=== PATIENT | male | born 1935 | race Caucasian/White ===

== ENCOUNTER 2018-01-15 18:45 | Emergency (ER) | payer MEDICARE, BC ==
[~2018-01-15] VITALS: Ht 180.3 cm; Wt 110.0 kg
[~2018-01-15 18:45] MED LIST: TAMS0.4C32 PO
[2018-01-15] MEDS ORDERED: LIDOcaine 1.5% w/epinephrine 1:200,000 5ml ampul IJ ONE (19:30)
[2018-01-15] MEDS ORDERED: labetalol 100mg tablet PO ONE (20:06)
[2018-01-15 20:16] LABS: BASOPHILS % (AUTO) 0.6 % (0-1); EOSINOPHILS # (AUTO) 0.4 X10'3 (0-0.9); EOSINOPHILS % (AUTO) 6.5 % (0-6); HEMATOCRIT 38.2 % (42.0-52.0); HEMOGLOBIN 12.9 g/dl (14.0-17.9); LYMPHOCYTES # (AUTO) 1.4 X10'3 (1.1-4.8); LYMPHOCYTES % (AUTO) 25.8 % (21-51); MEAN CORPUSCULAR HGB CONC 33.9 % (33.0-36.5); MEAN CORPUSCULAR VOLUME 88.4 FL (78-98); MEAN PLATELET VOLUME 6.6 FL (7.4-10.4); MONOCYTES # (AUTO) 0.6 X10'3 (0-0.9); MONOCYTES % (AUTO) 10.8 % (2-12); NEUTROPHILS # (AUTO) 3.1 X10'3 (1.8-7.7); NEUTROPHILS % (AUTO) 56.3 % (42-75); PLATELET COUNT 195 X10'3 (140-440); RED BLOOD COUNT 4.32 X10'6 (4.70-6.10); RED CELL DISTRIBUTION WIDTH 13.1 % (11.5-14.5); WHITE BLOOD COUNT 5.6 X10'3 (4.5-11.0)
[2018-01-15 20:35] LABS: PARTIAL THROMBOPLASTIN TIME 28 SECONDS (22-32); PROTHROMBIN TIME 10.4 SECONDS (9.0-12.0)
[2018-01-15 21:06] VITALS: BP 168/86
== END 2018-01-15 21:19 | disposition home or self-care (01) ==
LOC: ER 18:45
DX: T81.89XA Other complications of procedures, not elsewhere classified, initial encounter (principal); E78.00 Pure hypercholesterolemia, unspecified; I10 Essential (primary) hypertension; J45.909 Unspecified asthma, uncomplicated; Z88.0 Allergy status to penicillin
CPT/HCPCS: 36415; 85025; 85610; 85730; 99284; A6449; J3490; 99283

== ENCOUNTER 2018-03-21 13:38 | Emergency (ER) | payer MEDICARE, BC ==
[~2018-03-21] VITALS: Ht 180.3 cm; Wt 92.7 kg
[2018-03-21] MEDS ORDERED: TETanus/Pertussis (Acell)/Diphther VAC/PF (Tdap-Adult) 0.5ml syringe IM ONE (14:05)
[2018-03-21] MEDS ORDERED: LIDOcaine 1.5% w/epinephrine 1:200,000 5ml ampul IJ ONE (14:05)
[2018-03-21 15:28] VITALS: BP 147/75
== END 2018-03-21 15:36 | disposition home or self-care (01) ==
LOC: ER 13:39
DX: S01.01XA Laceration without foreign body of scalp, initial encounter (principal); E78.00 Pure hypercholesterolemia, unspecified; I10 Essential (primary) hypertension; J45.909 Unspecified asthma, uncomplicated; Z88.0 Allergy status to penicillin; W22.8XXA Striking against or struck by other objects, initial encounter; Y93.89 Activity, other specified; Y92.89 Other specified places as the place of occurrence of the external cause; Y99.8 Other external cause status
CPT/HCPCS: 12002; 70450; 90471; 90715; 99284; A6449; J3490

== ENCOUNTER 2020-09-09 15:48 | Inpatient (IN) | payer OTHER, MEDICARE, BC ==
[~2020-09-09] VITALS: Ht 180.3 cm; Wt 92.7 kg
[2020-09-09] MEDS ORDERED: normal saline 1000ML IV soln IVB ONE (15:55)
[2020-09-09] MEDS ORDERED: morphine 4 MG/ML inj SYRINge IV ONE (15:55)
[2020-09-09] MEDS ORDERED: ondansetron/PF 4mg/2ml inj IV ONE (15:55)
[2020-09-09 16:48] LABS: BASOPHILS % (AUTO) 0.5 % (0-1); EOSINOPHILS # (AUTO) 0.1 X10'3 (0-0.9); EOSINOPHILS % (AUTO) 0.9 % (0-6); HEMATOCRIT 40.7 % (42.0-52.0); HEMOGLOBIN 13.9 g/dl (14.0-17.9); LYMPHOCYTES # (AUTO) 0.8 X10'3 (1.1-4.8); LYMPHOCYTES % (AUTO) 9.9 % (21-51); MEAN CORPUSCULAR HGB CONC 34.2 g/dL (33.0-36.5); MEAN CORPUSCULAR VOLUME 90.5 FL (78-98); MEAN PLATELET VOLUME 7.1 FL (7.4-10.4); MONOCYTES # (AUTO) 0.6 X10'3 (0-0.9); MONOCYTES % (AUTO) 6.8 % (2-12); NEUTROPHILS % (AUTO) 81.9 % (42-75); PLATELET COUNT 208 X10'3 (140-440); RED CELL DISTRIBUTION WIDTH 13.3 % (11.5-14.5); WHITE BLOOD COUNT 8.5 X10'3 (4.5-11.0)
[2020-09-09 16:58] LABS: PARTIAL THROMBOPLASTIN TIME 29 SECONDS (22-32)
--- NOTE | 2020-09-09 17:10 | NUR ---
TC TO [facility], . INFORMED THAT PATIENT HAS FX HIP AND WILL BE ADMITTED FOR PROBABLE OR.
[2020-09-09] MEDS ORDERED: ATOR20TA PO (17:20)
[2020-09-09] MEDS ORDERED: QUIN10TA16 PO (17:20)
[2020-09-09] MEDS ORDERED: ASPI-920 PO (17:20)
[2020-09-09] MEDS ORDERED: CARB100C PO (17:20)
[2020-09-09] MEDS ORDERED: CETI-90 PO (17:20)
[2020-09-09] MEDS ORDERED: PROP20TA6 PO (17:20)
[2020-09-09] MEDS ORDERED: FINA5TAB11 PO (17:20)
[2020-09-09 17:28] LABS: ALANINE AMINOTRANSFERASE 24 U/L (12-78); ALBUMIN 3.7 G/DL (3.4-5.0); ALBUMIN/GLOBULIN RATIO 1.2 (1.1-1.5); ALKALINE PHOSPHATASE 73 IU/L (46-116); ANION GAP 6 (8-16); ASPARTATE AMINO TRANSFERASE 29 U/L (10-37); BILIRUBIN,TOTAL 0.4 MG/DL (0.1-1.0); BLOOD UREA NITROGEN 7 MG/DL (7-18); BUN/CREATININE RATIO 8.2 (5.4-32.0); CALCIUM 8.9 MG/DL (8.5-10.1); CHLORIDE 92 MMOL/L (99-107); CREATININE 0.85 MG/DL (0.60-1.10); GLUCOSE 105 MG/DL (70-104); POTASSIUM 4.3 MMOL/L (3.5-5.1); SODIUM 124 MMOL/L (135-145); TOTAL PROTEIN 6.9 G/DL (6.4-8.2); eGFR 85 ML/MIN
[2020-09-09] MEDS ORDERED: FLO0.4C PO (18:52)
[2020-09-09] MEDS ORDERED: mag hydrox/Alum hydrox/simeth 30ml oral suspension PO PRN (19:30)
[2020-09-09] MEDS ORDERED: morphine 2 MG/ML inj. syringe IV PRN (19:30)
[2020-09-09] MEDS ORDERED: ondansetron/PF 4mg/2ml inj IV PRN (19:30)
[2020-09-09] MEDS ORDERED: magnesium hydroxide 30ml (MOM) UD suspension PO PRN (19:30)
[2020-09-09] MEDS ORDERED: acetaminophen 325mg tablet PO PRN (19:30)
[2020-09-09] MEDS ORDERED: morphine 4 MG/ML inj SYRINge IV PRN (19:40)
[2020-09-09] MEDS: normal saline 1000ml 1,000 ML IV SCH (19:56)
[2020-09-09] MEDS: morphine 2 MG/ML inj. syringe IV PRN (19:56)
[2020-09-09] MEDS ORDERED: propranolol 40mg tablet PO SCH (20:00)
[2020-09-09 20:50] VITALS: BP 164/76
[2020-09-09] MEDS: propranolol 10mg tablet PO SCH (21:06)
[2020-09-09] MEDS: atorvastatin 20mg tablet PO SCH (21:07)
[2020-09-10] VITALS (16 sets, daily range): BP systolic 100–181; BP diastolic 50–78
[2020-09-10] MEDS: morphine 2 MG/ML inj. syringe IV PRN (04:05)
[2020-09-10] MEDS: normal saline 1000ml 1,000 ML IV SCH ×2 (05:30→20:34)
[2020-09-10] MEDS ORDERED: LIDOcaine 2% 10ml TOPICAL JELLY (Urojet) TP ONE (05:40)
[2020-09-10 06:54] LABS: BASOPHILS % (AUTO) 0.3 % (0-1); EOSINOPHILS # (AUTO) 0.1 X10'3 (0-0.9); EOSINOPHILS % (AUTO) 1.5 % (0-6); HEMATOCRIT 41.1 % (42.0-52.0); LYMPHOCYTES % (AUTO) 11.2 % (21-51); MEAN CORPUSCULAR HEMOGLOBIN 31.5 PG (27.0-31.0); MEAN CORPUSCULAR HGB CONC 34.1 g/dL (33.0-36.5); MEAN CORPUSCULAR VOLUME 92.3 FL (78-98); MEAN PLATELET VOLUME 6.9 FL (7.4-10.4); MONOCYTES # (AUTO) 0.6 X10'3 (0-0.9); MONOCYTES % (AUTO) 6.7 % (2-12); NEUTROPHILS # (AUTO) 6.8 X10'3 (1.8-7.7); NEUTROPHILS % (AUTO) 80.3 % (42-75); PLATELET COUNT 176 X10'3 (140-440); RED BLOOD COUNT 4.46 X10'6 (4.70-6.10); RED CELL DISTRIBUTION WIDTH 13.3 % (11.5-14.5); WHITE BLOOD COUNT 8.5 X10'3 (4.5-11.0)
[2020-09-10 07:13] LABS: ALANINE AMINOTRANSFERASE 20 U/L (12-78); ALBUMIN 3.6 G/DL (3.4-5.0); ALBUMIN/GLOBULIN RATIO 1.1 (1.1-1.5); ALKALINE PHOSPHATASE 70 IU/L (46-116); ANION GAP 6 (8-16); ASPARTATE AMINO TRANSFERASE 16 U/L (10-37); BILIRUBIN,TOTAL 0.8 MG/DL (0.1-1.0); BLOOD UREA NITROGEN 9 MG/DL (7-18); BUN/CREATININE RATIO 11.5 (5.4-32.0); CALCIUM 9.2 MG/DL (8.5-10.1); CHLORIDE 95 MMOL/L (99-107); CREATININE 0.78 MG/DL (0.60-1.10); GLUCOSE 108 MG/DL (70-104); POTASSIUM 4.1 MMOL/L (3.5-5.1); SODIUM 130 MMOL/L (135-145); TOTAL CARBON DIOXIDE 28.9 MMOL/L (24-32); TOTAL PROTEIN 6.9 G/DL (6.4-8.2); eGFR > 90 ML/MIN
[2020-09-10] MEDS ORDERED: finasteride 5mg tablet PO SCH (08:00)
[2020-09-10] MEDS: CARBAMAZEPINE 100 MG PO SCH (08:00)
[2020-09-10] MEDS ORDERED: potassium Cl 20 mEq SR tablet PO PRN ×2 (09:20)
[2020-09-10] MEDS ORDERED: magnesium 4gm in 100ml NS 100 ML IV PRN (09:20)
[2020-09-10] MEDS ORDERED: magnesium Cl slow-release 64mg tablet PO PRN (09:20)
[2020-09-10] MEDS ORDERED: potassium CL 10mEq/100ml bag 100 ML IV PRN (09:20)
[2020-09-10] MEDS: lisinopril 10 MG tablet PO SCH (09:31)
[2020-09-10] MEDS: tamsulosin 0.4mg capsule PO SCH (09:32)
[2020-09-10] MEDS: propranolol 10mg tablet PO SCH ×2 (09:32→20:34)
[2020-09-10] MEDS ORDERED: ondansetron/PF 4mg/2ml inj IV PRN (14:05)
[2020-09-10] MEDS ORDERED: morphine 2 MG/ML inj. syringe IV PRN (14:05)
[2020-09-10] MEDS ORDERED: morphine 4 MG/ML inj SYRINge IV PRN (14:05)
[2020-09-10] MEDS ORDERED: ringers solution, lacted 1,000 ML IV SCH (14:05)
[2020-09-10] MEDS ORDERED: meperidine/PF 25mg/ml syringe IV PRN ×3 (14:05)
[2020-09-10] MEDS ORDERED: proCHLORperazine 10 MG/2 ml inj IV PRN (14:05)
[2020-09-10] MEDS ORDERED: BUPIVAcaine 0.5% inj/PF 30 ML ONE (15:16)
[2020-09-10] MEDS ORDERED: midazolam 2 mg/2 ml injection ONE (15:19)
[2020-09-10] MEDS ORDERED: fentaNYL/PF 50MCG/1 ML 2ML syringe ONE ×2 (15:19→16:49)
[2020-09-10] MEDS ORDERED: BUPIVAcaine/PF 7.5mg/ml (0.75%) 10ml vial ONE (16:48)
[2020-09-10] MEDS ORDERED: ceFAZolin 1000mg inj ONE (16:48)
--- NOTE | 2020-09-10 17:15 | NUR ---
Received from OR via BED , accompanied by Anesthesiologist DR PURVIS and report given by Anesthesiolgist. PATIENT WAKING UP, DENIES PAIN, V/S WNL, NEUROVASCULAR CHECKS INTACT, 20G PIV RUE , DRESSING TO RIGHT HIP CDI W/ COLD POWDER PACK AND , SENSATION T-10. F/C DRAINING DARK CLEAR URINE.
--- NOTE | 2020-09-10 17:55 | NUR ---
PATIENT A&OX4, DENIES PAIN, V/S WNL, NEUROVASCULAR CHECKS INTACT, 20G PIV RUE , DRESSING TO RIGHT HIP CDI W/ COLD POWDER PACK AND , SENSATION T-10. F/C DRAINING DARK CLEAR URINE. PATIENT TAKEN TO 4012A WITH ALL BELONGINGS AND HOOKED UP TO MONITORS IN ROOM AND REPORT GIVEN TO DIRECTOR PROCESS IMPROVEMENT WHO HAS TAKEN OVER PATIENT CARE
[2020-09-10] MEDS: K and/or MAG REPLACEMENT MC SCH (20:00)
[2020-09-10] MEDS: atorvastatin 20mg tablet PO SCH (20:34)
[2020-09-10] MEDS: enoxaparin 30mg/0.3ml syringe SUBCUT SCH (20:34)
[2020-09-11] MEDS: ceFAZolin/D5W- 1GM premix 50 ML IV SCH ×2 (00:30→08:18)
[2020-09-11] MEDS: HYDROcodone/acetaminophen 10/325mg tab PO PRN ×4 (00:37→20:44)
[2020-09-11 02:00] VITALS: BP 113/52
[2020-09-11 06:00] VITALS: BP 121/64
--- NOTE | 2020-09-11 06:23 | NUR ---
Report given to Estefania LATIF.
--- NOTE | 2020-09-11 06:32 | NUR ---
Patient in room ORTHO 4012. I have received report from Nila Barahona RN and had the opportunity to ask questions and assume patient care.
[2020-09-11 07:26] LABS: BASOPHILS % (AUTO) 0.4 % (0-1); EOSINOPHILS % (AUTO) 0.3 % (0-6); HEMATOCRIT 32.1 % (42.0-52.0); LYMPHOCYTES # (AUTO) 0.7 X10'3 (1.1-4.8); LYMPHOCYTES % (AUTO) 7.5 % (21-51); MEAN CORPUSCULAR HEMOGLOBIN 31.3 PG (27.0-31.0); MEAN CORPUSCULAR HGB CONC 34.3 g/dL (33.0-36.5); MEAN CORPUSCULAR VOLUME 91.4 FL (78-98); MONOCYTES # (AUTO) 0.8 X10'3 (0-0.9); MONOCYTES % (AUTO) 8.9 % (2-12); NEUTROPHILS # (AUTO) 7.4 X10'3 (1.8-7.7); NEUTROPHILS % (AUTO) 82.9 % (42-75); PLATELET COUNT 169 X10'3 (140-440); RED BLOOD COUNT 3.51 X10'6 (4.70-6.10); RED CELL DISTRIBUTION WIDTH 13.2 % (11.5-14.5); WHITE BLOOD COUNT 8.9 X10'3 (4.5-11.0)
[2020-09-11 07:44] LABS: ALANINE AMINOTRANSFERASE 18 U/L (12-78); ALBUMIN 2.8 G/DL (3.4-5.0); ALKALINE PHOSPHATASE 52 IU/L (46-116); ANION GAP 6 (8-16); ASPARTATE AMINO TRANSFERASE 18 U/L (10-37); BILIRUBIN,TOTAL 0.7 MG/DL (0.1-1.0); BLOOD UREA NITROGEN 13 MG/DL (7-18); BUN/CREATININE RATIO 15.7 (5.4-32.0); CALCIUM 8.3 MG/DL (8.5-10.1); CHLORIDE 100 MMOL/L (99-107); CREATININE 0.83 MG/DL (0.60-1.10); GLUCOSE 134 MG/DL (70-104); MAGNESIUM 1.9 MG/DL (1.5-2.4); POTASSIUM 3.9 MMOL/L (3.5-5.1); SODIUM 131 MMOL/L (135-145); TOTAL CARBON DIOXIDE 25.3 MMOL/L (24-32); TOTAL PROTEIN 5.7 G/DL (6.4-8.2); eGFR 88 ML/MIN
[2020-09-11] MEDS: K and/or MAG REPLACEMENT MC SCH ×2 (08:00→20:00)
[2020-09-11] MEDS ORDERED: aspirin 81mg tablet.DR PO SCH (08:00)
[2020-09-11] MEDS: propranolol 10mg tablet PO SCH ×2 (08:00→20:44)
[2020-09-11] MEDS: normal saline 1000ml 1,000 ML IV SCH ×3 (08:18→20:50)
[2020-09-11] MEDS: CARBAMAZEPINE 100 MG PO SCH (08:19)
[2020-09-11] MEDS: tamsulosin 0.4mg capsule PO SCH (08:19)
[2020-09-11] MEDS: lisinopril 10 MG tablet PO SCH (08:19)
[2020-09-11 10:00] VITALS: BP 122/49
[2020-09-11 14:00] VITALS: BP 133/62
[2020-09-11] MEDS: morphine 2 MG/ML inj. syringe IV PRN (14:39)
[2020-09-11 18:00] VITALS: BP 140/74
--- NOTE | 2020-09-11 18:30 | NUR ---
Problems reprioritized. Patient report given, questions answered & plan of care reviewed with Rhiannon LATIF.
[2020-09-11] MEDS: atorvastatin 20mg tablet PO SCH (20:43)
[2020-09-11] MEDS: enoxaparin 30mg/0.3ml syringe SUBCUT SCH (20:43)
[2020-09-11] MEDS ORDERED: carBAMazepine Ext. Release 200 MG TAB.ER.12H PO SCH (21:00)
[2020-09-11] MEDS ORDERED: finasteride 5mg tablet PO SCH (21:00)
[2020-09-11 22:00] VITALS: BP 137/64
[2020-09-12] MEDS: normal saline 1000ml 1,000 ML IV SCH (03:54)
[2020-09-12] MEDS: HYDROcodone/acetaminophen 10/325mg tab PO PRN ×2 (05:44→11:54)
[2020-09-12 06:00] VITALS: BP 131/57
--- NOTE | 2020-09-12 06:24 | NUR ---
Problems reprioritized. Patient report given, questions answered & plan of care reviewed with BHAVYA Mac.
--- NOTE | 2020-09-12 06:32 | NUR ---
Patient in room ORTHO 4012. I have received report from Rhiannon LATIF and had the opportunity to ask questions and assume patient care.
[2020-09-12 06:56] LABS: ALANINE AMINOTRANSFERASE 14 U/L (12-78); ALBUMIN 2.5 G/DL (3.4-5.0); ALBUMIN/GLOBULIN RATIO 0.8 (1.1-1.5); ALKALINE PHOSPHATASE 48 IU/L (46-116); ANION GAP 6 (8-16); ASPARTATE AMINO TRANSFERASE 23 U/L (10-37); BILIRUBIN,TOTAL 0.5 MG/DL (0.1-1.0); BLOOD UREA NITROGEN 14 MG/DL (7-18); BUN/CREATININE RATIO 17.9 (5.4-32.0); CALCIUM 8.5 MG/DL (8.5-10.1); CHLORIDE 101 MMOL/L (99-107); CREATININE 0.78 MG/DL (0.60-1.10); GLUCOSE 109 MG/DL (70-104); MAGNESIUM 2.1 MG/DL (1.5-2.4); POTASSIUM 4.2 MMOL/L (3.5-5.1); SODIUM 129 MMOL/L (135-145); TOTAL CARBON DIOXIDE 22.5 MMOL/L (24-32); TOTAL PROTEIN 5.6 G/DL (6.4-8.2); eGFR > 90 ML/MIN
[2020-09-12 07:21] LABS: BASOPHILS % (AUTO) 0.4 % (0-1); EOSINOPHILS # (AUTO) 0.1 X10'3 (0-0.9); EOSINOPHILS % (AUTO) 1.2 % (0-6); HEMATOCRIT 25.8 % (42.0-52.0); LYMPHOCYTES # (AUTO) 0.7 X10'3 (1.1-4.8); LYMPHOCYTES % (AUTO) 9.2 % (21-51); MEAN CORPUSCULAR HEMOGLOBIN 31.5 PG (27.0-31.0); MEAN CORPUSCULAR HGB CONC 34.9 g/dL (33.0-36.5); MEAN CORPUSCULAR VOLUME 90.4 FL (78-98); MEAN PLATELET VOLUME 6.9 FL (7.4-10.4); MONOCYTES # (AUTO) 0.9 X10'3 (0-0.9); MONOCYTES % (AUTO) 11.9 % (2-12); NEUTROPHILS % (AUTO) 77.3 % (42-75); PLATELET COUNT 143 X10'3 (140-440); RED BLOOD COUNT 2.85 X10'6 (4.70-6.10); RED CELL DISTRIBUTION WIDTH 13.3 % (11.5-14.5); WHITE BLOOD COUNT 7.8 X10'3 (4.5-11.0)
[2020-09-12] MEDS: K and/or MAG REPLACEMENT MC SCH (08:00)
[2020-09-12] MEDS: CARBAMAZEPINE 100 MG PO SCH (08:00)
[2020-09-12] MEDS ORDERED: carBAMazepine 100mg chewable tablet PO SCH (08:00)
[2020-09-12] MEDS: propranolol 10mg tablet PO SCH (08:45)
[2020-09-12] MEDS: lisinopril 10 MG tablet PO SCH (08:45)
[2020-09-12] MEDS: tamsulosin 0.4mg capsule PO SCH (08:45)
[2020-09-12 10:00] VITALS: BP 113/55
--- NOTE | 2020-09-12 10:13 | NUR ---
Removed Calvillo Catheter with all tubing intact. Patient tolerated well, will continue to monitor patient for post void.
--- NOTE | 2020-09-12 14:00 | NUR ---
Patient had not voided yet, I bladder scanned him at it showed 75 ML of urine. Will continue to monitor.
[2020-09-12] MEDS ORDERED: CARBAMAZEPINE 100 MG PO SCH ×2 (14:46→21:00)
--- NOTE | 2020-09-12 15:48 | NUR ---
Patient stable for transfer to [facility]. Patient in stable condition. IV removed and report called to Margarita at [facility].
== END 2020-09-12 15:00 | DRG 522 ==
LOC: ER 15:49 → ED HOLD 19:29 → ORTHO 4S 20:15
PROVIDERS: ADMIT Internal Medicine; ATTEND Family Medicine
PROC: 0SRR0JA Replacement of Right Hip Joint, Femoral Surface with Synthetic Substitute, Uncemented, Open Approach (ICD-10-PCS; principal; 2020-09-10 15:25)
DX: S72.001A Fracture of unspecified part of neck of right femur, initial encounter for closed fracture (principal); F31.9 Bipolar disorder, unspecified; E78.00 Pure hypercholesterolemia, unspecified; W01.0XXA Fall on same level from slipping, tripping and stumbling without subsequent striking against object, initial encounter; Z66 Do not resuscitate; E78.5 Hyperlipidemia, unspecified; H35.52 Pigmentary retinal dystrophy; N40.0 Benign prostatic hyperplasia without lower urinary tract symptoms; Z20.828 Contact with and (suspected) exposure to other viral communicable diseases; I10 Essential (primary) hypertension; J45.909 Unspecified asthma, uncomplicated; G47.30 Sleep apnea, unspecified; Y93.01 Activity, walking, marching and hiking; Y92.480 Sidewalk as the place of occurrence of the external cause; Y99.8 Other external cause status; Z88.0 Allergy status to penicillin; Z79.899 Other long term (current) drug therapy; Z79.82 Long term (current) use of aspirin
CPT/HCPCS: 36415; 71045; 73140; 73502; 80053; 83735; 85025; 85610; 85730; 86885; 86900; 86901; 87081; 87635; 93005; 96361; 96374; 96375; 97112; 97116; 97161; 97530; 99285; A4215; A4618; A6454; A7000; C1776; C9803; G0378; J0690; J1650; J2250; J2270; J2405; J3010; J3490; J7030

== ENCOUNTER 2022-07-07 06:37 | Day surgery (SDC) | payer MEDICARE, BC ==
[2022-06-30 10:59] LABS: BASOPHILS % (AUTO) 0.9 % (0-1); EOSINOPHILS # (AUTO) 0.2 X10'3 (0-0.9); EOSINOPHILS % (AUTO) 3.4 % (0-6); LYMPHOCYTES # (AUTO) 1.1 X10'3 (1.1-4.8); LYMPHOCYTES % (AUTO) 21.3 % (21-51); MEAN CORPUSCULAR HEMOGLOBIN 31.3 PG (27.0-31.0); MEAN CORPUSCULAR HGB CONC 34.2 g/dL (33.0-36.5); MEAN CORPUSCULAR VOLUME 91.6 FL (78-98); MONOCYTES # (AUTO) 0.5 X10'3 (0-0.9); MONOCYTES % (AUTO) 9.9 % (2-12); NEUTROPHILS # (AUTO) 3.3 X10'3 (1.8-7.7); NEUTROPHILS % (AUTO) 64.5 % (42-75); PRE OP HEMATOCRIT 38.4 % (42.0-52.0); PRE OP HEMOGLOBIN 13.1 g/dL (14.0-17.9); PRE OP PLATELET COUNT 194 X10'3 (140-440); RED BLOOD COUNT 4.19 X10'6 (4.70-6.10); RED CELL DISTRIBUTION WIDTH 13.3 % (11.5-14.5)
[2022-06-30 11:10] LABS: ALBUMIN 3.7 G/DL (3.4-5.0); ALBUMIN/GLOBULIN RATIO 1.2 (1.1-1.5); ALKALINE PHOSPHATASE 79 IU/L (46-116); BLOOD UREA NITROGEN 10 MG/DL (7-18); BUN/CREATININE RATIO 11.9 (5.4-32.0); CALCIUM 8.7 MG/DL (8.5-10.1); CHLORIDE 91 MMOL/L (99-107); CREATININE 0.84 MG/DL (0.60-1.10); PRE OP ALT 19 U/L (30-65); PRE OP ANION GAP 8 (8-16); PRE OP AST 16 U/L (10-37); PRE OP BILIRUB, TOTAL 0.4 MG/DL (0.0-1.0); PRE OP GLUCOSE 95 MG/DL (70-104); PRE OP POTASSIUM 4.3 MMOL/L (3.4-5.1); TOTAL CARBON DIOXIDE 26.8 MMOL/L (24-32); TOTAL PROTEIN 6.9 G/DL (6.4-8.2); eGFR 86 ML/MIN
[2022-06-30 11:11] LABS: PRE OP SODIUM 126 MMOL/L (135-145)
[2022-07-07] VITALS (16 sets, daily range): BP systolic 129–184; BP diastolic 59–77
[~2022-07-07] VITALS: Ht 180.3 cm; Wt 90.7 kg
[~2022-07-07 06:37] MED LIST changes: +ASCO-157 PO; +ASPI-920 PO; +ATOR20TA PO; +CARB100C PO; +CETI-90 PO; +DOCUMENT DATE & TIME OF BETA-BLOCKER PO ONE; +FINA5TAB11 PO; +FLAX10007 PO; +FLO0.4C PO; +GLUC-95 PO; +MULT-1085 PO; +PROP20TA6 PO; +QUIN10TA35 PO; -TAMS0.4C32 PO; +VITA-332 PO; +VITA400T10 PO; +clindamycin-Cleocin 900mg/D5W 50 ML IV ONE; +famotidine 20mg tablet PO ONE; +ringers solution, lacted 1,000 ML IV SCH
[2022-07-07] MEDS ORDERED: BUPIVAcaine/PF 2.5mg/ml (0.25%) 10ml vial ONE (06:59)
[2022-07-07 08:12] LABS: ISTAT ANION GAP 11 (8-12); ISTAT BUN 8 mg/dL (7-18); ISTAT CL 91 mmol/L (99-107); ISTAT CREATININE 0.7 mg/dL (0.8-1.3); ISTAT GLUCOSE 97 mg/dL (70-105); ISTAT HGB 13.9 g/dl (14.0-18.0); ISTAT Hct 41 %PCV (42-52); ISTAT IONIZED CALCIUM 1.25 mmol/L (1.03-1.32); ISTAT K 4.1 mmol/L (3.5-5.1); ISTAT NA 128 mmol/L (135-145); ISTAT TOTAL CO2 26 mmol/L (24-32); ISTAT eGFR > 90 ML/MIN; POC BUN/CREATININE RATIO 11.4 (5.4-32.0)
[2022-07-07] MEDS ORDERED: LIDOcaine 0.5% (5mg/ml) 50ml vial ONE ×2 (09:13→10:17)
[2022-07-07] MEDS ORDERED: fentaNYL/PF 50MCG/1 ML 2ML syringe ONE (10:12)
[2022-07-07] MEDS ORDERED: midazolam 1 mg/ML 2ml injection ONE (10:13)
[2022-07-07] MEDS ORDERED: ketorolac trometh. 30mg/ml inj. ONE (10:17)
--- NOTE | 2022-07-07 10:53 | NUR ---
RECEIVED PT FROM OPERATING ROOM IN STABLE CONDITION, SLEEPY, O2 AT 2 LTR NASAL CANNULA INPLACE. REPORT RECEIVED FROM ANESTHESIA. VITAL SIGNS STABLE, PT IS AROUSABLE WITH PHYSICAL STIMULATION
--- NOTE | 2022-07-07 12:16 | NUR ---
PT REMAINS SLEEPY, HEART RATE REMAINS 49-52 RANGE, PT WAKES UP AND STARTS TO TALK AND FALLS BACK ASLEEP
--- NOTE | 2022-07-07 13:13 | NUR ---
BY KEVIN - VOLUNTEER - PATIENTS [facility] HELPED PT GET DRESSED. IV D/JEANA WITH CATHETER INTACT. PATIENT PLACED IN WHEEL AND WAS TAKEN TO THE LOBBY BY VOLUNTEER, ACCOMPANIED BY WHO WAS DRIVING PT HOME. PT INSTRUCTED TO TAKE HIS BLOOD PRESSURE MEDICATIONS WHEN HE GOT HOME, SPOKE TO DR MIX ABOUT PTS BLOOD PRESSURE PRIOR TO DISCHARGE. DISCHARGE INSTRUCTIONS GIVEN TO AND PATIENT, VERBALIZED UNDERSTANDING OF INSTRUCTIONS.
--- NOTE | 2022-07-07 13:13 | NUR ---
AT BEDSIDE, HELPING GET PT DRESSED, HE STATED HE IS LEGALLY BLIND AND HAS DIFFICULTY WITH SEEING WELL. BROUGHT TO PACU BY perico
== END 2022-07-07 13:13 | disposition home or self-care (01) ==
LOC: PAS 06:37
PROVIDERS: ATTEND Orthopaedic Surgery Hand Surgery
DX: G56.01 Carpal tunnel syndrome, right upper limb (principal); G47.30 Sleep apnea, unspecified; Z88.0 Allergy status to penicillin; F31.9 Bipolar disorder, unspecified; Z79.899 Other long term (current) drug therapy; Z87.891 Personal history of nicotine dependence; Z98.890 Other specified postprocedural states; Z20.822 Contact with and (suspected) exposure to COVID-19
CPT/HCPCS: 36415; 64721; 80047; 80053; 85025; 87811; 93005; J1885; J2250; J3010; J3490; J7030; J7040; J7120; Z7506; Z7512; A4215

== ENCOUNTER 2022-08-08 05:21 | Day surgery (SDC) | payer MEDICARE, BC ==
[2022-08-01 14:09] LABS: BASOPHILS % (AUTO) 0.7 % (0-1); EOSINOPHILS # (AUTO) 0.2 X10'3 (0-0.9); EOSINOPHILS % (AUTO) 3.8 % (0-6); LYMPHOCYTES % (AUTO) 18.5 % (21-51); MEAN CORPUSCULAR HEMOGLOBIN 31.2 PG (27.0-31.0); MEAN CORPUSCULAR HGB CONC 34.2 g/dL (33.0-36.5); MEAN CORPUSCULAR VOLUME 91.3 FL (78-98); MONOCYTES # (AUTO) 0.7 X10'3 (0-0.9); MONOCYTES % (AUTO) 11.9 % (2-12); NEUTROPHILS # (AUTO) 3.7 X10'3 (1.8-7.7); NEUTROPHILS % (AUTO) 65.1 % (42-75); PRE OP HEMATOCRIT 37.8 % (42.0-52.0); PRE OP HEMOGLOBIN 12.9 g/dL (14.0-17.9); PRE OP PLATELET COUNT 179 X10'3 (140-440); RED BLOOD COUNT 4.14 X10'6 (4.70-6.10); RED CELL DISTRIBUTION WIDTH 13.9 % (11.5-14.5)
[2022-08-01 14:33] LABS: ALBUMIN 3.6 G/DL (3.4-5.0); ALBUMIN/GLOBULIN RATIO 1.1 (1.1-1.5); ALKALINE PHOSPHATASE 86 IU/L (46-116); BLOOD UREA NITROGEN 8 MG/DL (7-18); BUN/CREATININE RATIO 11.8 (5.4-32.0); CALCIUM 8.5 MG/DL (8.5-10.1); CHLORIDE 91 MMOL/L (99-107); CREATININE 0.68 MG/DL (0.60-1.10); PRE OP ALT 17 U/L (30-65); PRE OP ANION GAP 5 (8-16); PRE OP AST 20 U/L (10-37); PRE OP BILIRUB, TOTAL 0.5 MG/DL (0.0-1.0); PRE OP GLUCOSE 96 MG/DL (70-104); PRE OP POTASSIUM 4.5 MMOL/L (3.4-5.1); TOTAL CARBON DIOXIDE 26.7 MMOL/L (24-32); TOTAL PROTEIN 6.8 G/DL (6.4-8.2); eGFR > 90 ML/MIN
[2022-08-01 14:40] LABS: PRE OP SODIUM 123 MMOL/L (135-145)
[2022-08-08] VITALS (10 sets, daily range): BP systolic 125–161; BP diastolic 63–81
[~2022-08-08] VITALS: Ht 180.3 cm; Wt 87.5 kg
[~2022-08-08 05:21] MED LIST changes: -DOCUMENT DATE & TIME OF BETA-BLOCKER PO ONE; -clindamycin-Cleocin 900mg/D5W 50 ML IV ONE; -famotidine 20mg tablet PO ONE
[2022-08-08] MEDS ORDERED: DOCUMENT DATE & TIME OF BETA-BLOCKER PO ONE (05:30)
[2022-08-08] MEDS ORDERED: clindamycin 600mg/D5W 50ml 50 ML IV ONE (05:30)
[2022-08-08] MEDS ORDERED: famotidine 20mg tablet PO ONE (05:30)
[2022-08-08 06:41] LABS: ISTAT ANION GAP 11 (8-12); ISTAT BUN 8 mg/dL (7-18); ISTAT CL 92 mmol/L (99-107); ISTAT CREATININE 0.6 mg/dL (0.8-1.3); ISTAT GLUCOSE 91 mg/dL (70-104); ISTAT HGB 12.2 g/dl (14.0-17.9); ISTAT Hct 36 %PCV (42-52); ISTAT IONIZED CALCIUM 1.06 mmol/L (1.03-1.32); ISTAT NA 126 mmol/L (135-145); ISTAT TOTAL CO2 23 mmol/L (24-32); ISTAT eGFR > 90 ML/MIN; POC BUN/CREATININE RATIO 13.3 (5.4-32.0)
[2022-08-08] MEDS ORDERED: BUPIVAcaine/PF 2.5mg/ml (0.25%) 10ml vial ONE (06:46)
[2022-08-08] MEDS ORDERED: LIDOcaine 1% 30ml preserv. free vial ONE (07:20)
[2022-08-08] MEDS ORDERED: midazolam 1 mg/ML 2ml injection ONE (07:23)
[2022-08-08] MEDS ORDERED: fentaNYL/PF 50MCG/1 ML 2ML syringe ONE (07:23)
[2022-08-08] MEDS ORDERED: ketorolac trometh. 30mg/ml inj. ONE (07:26)
--- NOTE | 2022-08-08 07:55 | NUR ---
Received from OR via , accompanied by Anesthesiologist DR MOHR and report given by Anesthesiolgist. [facility] [place]. PATIENT RESTING IN NO PAIN. RESPONDS TO STIMULI. DRESSING ON LEFT HAND WITH BANDAGE CDI. APPLIED ICE. 20 IN R WRIST. LR RUNNING. Addendum: 08/08/22 at 0816 by Elen Richards RN Amended: Links added.
--- NOTE | 2022-08-08 08:55 | NUR ---
PATIENT MEETS DISCHARGE CRITERIA. V/S STABLE. IV DC'D NO ISSUES. EDUCATED PATIENT TO REMOVE COBAN IN 30 MINUTES. PATIENT WAS WEARING HIS GLASSES UPON LEAVING. EDUCATED PATIENT ON ELEVATING AND ICING LEFT HAND, AND TO ALSO MOVE FINGERS FREQUENTLY. Addendum: 08/08/22 at 0909 by Elen Richards RN Amended: Links added.
== END 2022-08-08 08:55 | disposition home or self-care (01) ==
LOC: PAS 05:21
PROVIDERS: ATTEND Orthopaedic Surgery Hand Surgery
DX: G56.02 Carpal tunnel syndrome, left upper limb (principal); I10 Essential (primary) hypertension; E78.5 Hyperlipidemia, unspecified; F31.9 Bipolar disorder, unspecified; H54.8 Legal blindness, as defined in USA; Z79.899 Other long term (current) drug therapy; Z98.890 Other specified postprocedural states; Z87.891 Personal history of nicotine dependence
CPT/HCPCS: 36415; 64721; 80047; 80053; 82948; 85025; J1885; J2250; J3010; J3490; J7030; J7120; Z7506; Z7512; A4215